=== PATIENT | female | born 2000 | race African-American/Black ===

== ENCOUNTER 2023-01-08 12:23 | Emergency (ER) | payer OTHER ==
[~2023-01-08] VITALS: Ht 160 cm; Wt 59.0 kg
[2023-01-08 12:24] VITALS: BP 143/92; TEMP 98.5; O2SAT 100
[2023-01-08] MEDS ORDERED: LIDOCAINE W/EPINEPHRINE 1% 20ML VIAL SC ONE (14:20)
[2023-01-08] MEDS ORDERED: LIDOCAINE 1% MDV 20ML VIAL IM ONE (14:45)
== END 2023-01-08 15:18 | disposition home or self-care (01) ==
LOC: M ED 12:23
DX: S61.211A Laceration without foreign body of left index finger without damage to nail, initial encounter (principal); Y92.009 Unspecified place in unspecified non-institutional (private) residence as the place of occurrence of the external cause; W26.0XXA Contact with knife, initial encounter

== ENCOUNTER 2023-09-12 18:12 | Emergency (ER) | payer OTHER ==
[~2023-09-12] VITALS: Ht 160 cm; Wt 63.6 kg
[2023-09-12 18:17] VITALS: TEMP 98.7
[2023-09-12 19:04] LABS: BASO # 0.1 10^3/uL (0.0-0.2); BASO % 0.8 % (0.0-1.0); EOS # 0.1 10^3/uL (0.0-0.5); EOS % 0.5 % (0.0-3.0); HEMATOCRIT 39.4 % (36.0-47.0); HEMOGLOBIN 13.1 g/dl (12.0-15.5); LYMPH # 2.9 10^3/uL (1.5-5.0); LYMPH % 23.3 % (24.0-44.0); MEAN CORPUSCULAR HEMOGLOBIN 33.2 pg (27.0-33.0); MEAN CORPUSCULAR HGB CONC 33.2 g/dl (32.0-36.5); MONO # 1.3 10^3/uL (0.0-0.8); MONO % 10.4 % (2.0-8.0); NEUTROPHILS # 8.1 10^3/uL (1.5-8.5); NEUTROPHILS % 64.8 % (36.0-66.0); PLATELET COUNT, AUTOMATED 340 10^3/uL (150-450); RED BLOOD COUNT 3.94 10^6/uL (4.00-5.40); WHITE BLOOD COUNT 12.5 10^3/uL (4.0-10.0)
[2023-09-12 19:25] LABS: BLOOD UREA NITROGEN 9 MG/DL (9-23); CALCIUM LEVEL 9.7 MG/DL (8.5-10.1); CARBON DIOXIDE LEVEL 23 MMOL/L (20-31); CHLORIDE LEVEL 98 MMOL/L (98-107); CREATININE FOR GFR 0.78 MG/DL (0.55-1.30); GLOMERULAR FILTRATION RATE > 60.0 (>60); GLUCOSE, FASTING 90 MG/DL (60-100); POTASSIUM SERUM 4.6 MMOL/L (3.5-5.1); SODIUM LEVEL 130 MMOL/L (136-145)
[2023-09-12 19:41] LABS: HCG, SERUM QUALITATIVE NEGATIVE (NEGATIVE)
[2023-09-12] MEDS ORDERED: ISOVUE-370 76% 100ML VIAL As Ordered ONE (20:29)
[2023-09-12 20:37] LABS: LIPASE 28 U/L (12-53)
[2023-09-12 20:39] LABS: ALBUMIN 4.7 G/DL (3.2-5.2); ALKALINE PHOSPHATASE 55 U/L (46-116); ALT/SGPT 75 U/L (7.0-40); AST/SGOT 67 U/L (<34); BILIRUBIN,DIRECT 0.4 MG/DL (<0.4); BILIRUBIN,TOTAL 1.3 MG/DL (0.3-1.2); TOTAL PROTEIN 8.1 G/DL (5.7-8.2)
[2023-09-12] MEDS: ONDANSETRON 4MG 2ML VIAL IV ONE (20:45)
[2023-09-12] MEDS: PANTOPRAZOLE 40MG VIAL IV ONE (20:45)
[2023-09-12] MEDS: NS 1,000 ML IV SCH (20:47)
[2023-09-12] MEDS: MAALOX 30 ML SUSP *UDC PO ONE (21:39)
[2023-09-12 23:00] VITALS: BP 116/86; O2SAT 96
[2023-09-12] MEDS ORDERED: ONDA-282 PO (23:03)
== END 2023-09-12 23:21 | disposition home or self-care (01) ==
LOC: M ED 18:12
DX: R11.2 Nausea with vomiting, unspecified (principal); F17.210 Nicotine dependence, cigarettes, uncomplicated; F10.10 Alcohol abuse, uncomplicated; Z79.899 Other long term (current) drug therapy
CPT/HCPCS: 74177; 80048; 80076; 81001; 83690; 84703; 85025; 96361; 96374; 99284; J2405; J2470; Q9967